=== PATIENT | female | born 1930 | race Caucasian/White ===

== ENCOUNTER 2017-12-03 02:36 | Emergency (ER) | payer MEDICARE ==
[2017-12-03] MEDS ORDERED: Pantoprazole IV* 40 MG IV ONE (03:05)
[2017-12-03] MEDS ORDERED: Al Hydrox/Mg Hydrox/Simet LIQ* 30 ML UDC PO ONE (03:05)
[2017-12-03] MEDS ORDERED: Lidocaine 2% VISCOUS* 15 ML UDC PO ONE (03:05)
[2017-12-03] MEDS ORDERED: Al Hydrox/Mg Hydrox/Simet LIQ* 30 ML UDC ONE (03:23)
[2017-12-03 03:32] LABS: ABS Basophils 0 10^3/ul (0-0.2); ABS Eosinophils 0.1 10^3/ul (0-0.6); ABS Monocytes 0.6 10^3/ul (0-0.8); ABS Nucleated RBC 0 10^3/ul; Eosinophil % 2.1 % (0-6); Hematocrit 35 % (35-47); Hemoglobin 11.3 g/dl (12.0-16.0); Lymphocyte % 26.3 % (25-47); Mean Corpuscular HGB Conc 33 g/dl (31-36); Mean Corpuscular Hemoglobin 26 pg (27-31); Mean Corpuscular Volume 79 fL (80-97); Nucleated Red Blood Cells % 0; Platelet Count 270 10^3/ul (150-450); Red Cell Distribution Width 17 % (10.5-15); White Blood Count 3.7 10^3/ul (3.5-10.8)
[2017-12-03 03:40] LABS: INR 0.97 (0.77-1.02)
[2017-12-03 03:47] LABS: EGFR Non-African American 92.6 (>60)
[2017-12-03 04:58] VITALS: BP 132/76
--- NOTE | 2017-12-03 05:07 | ED ---
June Hernandez Thomas, scribed for Kristin Schroeder MD on 12/03/17 at 0333 . Abdominal Pain/Female - HPI Summary HPI Summary: The patient is an 87 year old female complaining of epigastric abdominal pain and shortness of breath that woke her up from sleep a few hours ago. She reports similar prior episodes of abdominal pain. She complains of nausea. She denies any pleuritic pain or chest pain. Two weeks ago, the patient was admitted for two days for a similar pain. She was told that she was cleared from a cardiac standpoint. Past medical history includes hiatal hernia. Past surgical history includes cholecystectomy. - History of Current Complaint Chief Complaint: EDChestPainROMI Stated Complaint: DIFFICULTY BREATHING Time Seen by Provider: 12/03/17 02:52 Hx Obtained From: Patient Onset/Duration: Lasting Hours, Still Present Timing: Constant Severity Currently: Severe Pain Intensity: 8 Pain Scale Used: 0-10 Numeric Location: Epigastric Aggravating Factor(s): Nothing Alleviating Factor(s): Nothing Associated Signs and Symptoms: Positive: Nausea, Other: - SOB. Negative: Fever Allergies/Adverse Reactions: Allergies Allergy/AdvReac Type Severity Reaction Status Date / Time alprazolam Allergy Dizziness Verified 12/03/17 03:35 aspirin Allergy See Comment Verified 12/03/17 03:35 atorvastatin [From Lipitor] Allergy Nausea Verified 12/03/17 03:35 iodine Allergy Rash Verified 12/03/17 03:35 lidocaine Allergy Itching Verified 12/03/17 03:35 PMH/Surg Hx/FS Hx/Imm Hx Endocrine/Hematology History: Denies: Hx Diabetes Cardiovascular History: Reports: Hx Hypercholesterolemia, Hx Hypertension Denies: Hx Congestive Heart Failure GI History: Reports: Hx Hiatal Hernia, Other GI Disorders - Ulcerative Proctitis History: Reports: Other Problems/Disorders - urinary retention Denies: Hx Renal Disease Musculoskeletal History: Reports: Hx Back Problems - recent fall Sensory History: Reports: Hx Cataracts, Hx Contacts or Glasses Denies: Hx Hearing Problem Opthamlomology History: Reports: Hx Cataracts, Hx Contacts or Glasses Psychiatric History: Reports: Hx Anxiety, Hx Depression - Cancer History Cancer Type, Location and Year: unknown if breast cancer cells in lumpectomy Hx Chemotherapy: No Hx Radiation Therapy: Yes - Surgical History Surgery Procedure, Year, and Place: right breast lumpectomy ', hernia repair, blood clot removal from brain '96 Hx Anesthesia Reactions: No - Immunization History Date of Tetanus Vaccine: unknown Date of Influenza Vaccine: 2013 Infectious Disease History: No Infectious Disease History: Denies: Traveled Outside the [place] in Last 30 Days - Family History Known Family History: Negative: Seizure Disorder - Social History Alcohol Use: None Hx Substance Use: No Substance Use Type: Reports: None Hx Tobacco Use: No Smoking Status (MU): Never Smoked Tobacco Review of Systems Negative: Chest Pain Positive: Shortness Of Breath Positive: Abdominal Pain, Nausea All Other Systems Reviewed And Are Negative: Yes Physical Exam - Summary Physical Exam Summary: VITAL SIGNS: Reviewed. GENERAL: Patient is a well-developed and nourished female who is lying comfortable in the stretcher. Patient is not in any acute respiratory distress. HEAD AND FACE: No signs of trauma. No ecchymosis, hematomas or skull depressions. No sinus tenderness. EYES: PERRLA, EOMI x 2, No injected conjunctiva, no nystagmus. EARS: Hearing grossly intact. Ear canals and tympanic membranes are within normal limits. MOUTH: Oropharynx within normal limits. NECK: Supple, trachea is midline, no adenopathy, no JVD, no carotid bruit, no c- spine tenderness, neck with full ROM. CHEST: Symmetric, no tenderness at palpation LUNGS: Clear to auscultation bilaterally. No wheezing or crackles. CVS: Regular rate and rhythm, S1 and S2 present, no murmurs or gallops appreciated. ABDOMEN: Soft. Epigastric tenderness. No signs of distention. No rebound no guarding, and no masses palpated. Bowel sounds are normal. EXTREMITIES: FROM in all major joints, no edema, no cyanosis or clubbing. NEURO: Alert and oriented x 3. No acute neurological deficits. Speech is normal and follows commands. SKIN: Dry and warm Triage Information Reviewed: Yes Vital Signs On Initial Exam: Initial Vitals Resp 18 12/03/17 02:44 Vital Signs Reviewed: Yes Diagnostics - Vital Signs Vital Signs Temp Pulse Resp BP Pulse Ox 12/03/17 03:00 83 19 98 12/03/17 02:47 97.4 F 78 28 169/88 98 12/03/17 02:46 82 21 169/88 99 12/03/17 02:44 18 - Laboratory Result Diagrams: 12/03/17 03:24 05/04/18 03:24 Lab Statement: Any lab studies that have been ordered have been reviewed, and results considered in the medical decision making process. - Radiology CXR Xray Interpretation: No Acute Changes - No acute process Radiology Interpretation Completed By: ED Physician - EKG 02:49 Cardiac Rate: NL EKG Rhythm: Sinus Rhythm - at 79 BPM Re-Evaluation - Re-Evaluation First Eval Re-Evaluation Time: 04:25 Comment: She is feeling fine. Abdominal Pain Fem Course/Dx - Course Course Of Treatment: The patient is an 87 year old female complaining of epigastric abdominal pain and shortness of breath that woke her up from sleep a few hours ago. Two weeks ago, the patient was admitted for two days for a similar pain. She was told that she was cleared from a cardiac standpoint. Past medical history includes hiatal hernia. In the ED course, the patient was given Maalox, Xylocaine, and Protonix. Bloodwork, EKG, and CXR were obtained. At re- evaluation, the patient is feeling better. Her symptoms could be anxiety versus hiatus hernia. The patient is diagnosed with atypical chest pain. The patient will be discharged home to follow up with primary care. - Diagnoses Provider Diagnoses: Atypical chest pain Discharge - Sign-Out/Discharge Documenting (check all that apply): Discharge/Admit/Transfer - Discharge Plan Condition: Stable Disposition: HOME Patient Education Materials: Chest Pain (ED) Referrals: Sixto Benavides MD [Medical Doctor] - 3 Days Additional Instructions: Follow up with your primary care physician in three days. Return to the emergency department for any new or worsening symptoms. The documentation as recorded by the June russo Thomas accurately reflects the service I personally performed and the decisions made by , Kristin Schroeder MD.
--- NOTE | 2017-12-03 08:05 | RAD ---
Indication: Chest pain, shortness of breath, epigastric pain. History of hiatal hernia. Comparison: December 30, [address] Technique: Upright AP 0315 hours Report: Rightward rotation noted. Elevated lung volumes and mild prominence of the interstitial markings. No focal pulmonary lesion, compelling alveolar consolidation, pleural effusion, pneumothorax. Negative for cardiomegaly. Unremarkable central pulmonary vasculature. Moderately tortuous thoracic aorta. RIGHT axillary surgical clips. Advanced arthropathy of the shoulders. Chronic severe compression fracture at the approximate L2 level. IMPRESSION: Stigmata of obstructive lung disease. No acute pulmonary or cardiac process evident.
== END 2017-12-03 05:01 | disposition home or self-care (01) ==
LOC: ED 02:36
DX: R07.89 Other chest pain (principal); R10.13 Epigastric pain; R11.0 Nausea; R06.02 Shortness of breath; Z86.79 Personal history of other diseases of the circulatory system
CPT/HCPCS: 36415; 71045; 80053; 82150; 83690; 83735; 83880; 84484; 85025; 85610; 85730; 93005; 96374; 99284; A9270-GY

== ENCOUNTER 2018-07-03 00:40 | Emergency (ER) | payer MEDICARE ==
[2018-07-03] MEDS ORDERED: NS 0.9% 1000 ML* 1,000 ML IV ONE (01:14)
[2018-07-03] MEDS ORDERED: Ondansetron INJ* 2 MG/ML VIAL IV ONE (01:16)
[2018-07-03] MEDS ORDERED: Pantoprazole IV* 40 MG IV ONE (01:16)
[2018-07-03] MEDS ORDERED: fentaNYL* 50 MCG/ML 2 ML VIAL (100 MCG VIAL) IV SLOW PU ONE (01:17)
[2018-07-03 01:52] LABS: ABS Basophils 0 10^3/ul (0-0.2); ABS Eosinophils 0.1 10^3/ul (0-0.6); ABS Lymphocytes 0.7 10^3/ul (1.0-4.8); ABS Monocytes 0.3 10^3/ul (0-0.8); ABS Neutrophils 2.2 10^3/ul (1.5-7.7); ABS Nucleated RBC 0 10^3/ul; Eosinophil % 1.6 %; Hematocrit 34 % (35-47); Hemoglobin 11.4 g/dl (12.0-16.0); Mean Corpuscular HGB Conc 34 g/dl (31-36); Mean Corpuscular Hemoglobin 26 pg (27-31); Mean Corpuscular Volume 78 fL (80-97); Mean Platelet Volume 7.2 fL (7.4-10.4); Nucleated Red Blood Cells % 0; Platelet Count 292 10^3/ul (150-450); Red Blood Count 4.36 10^6/ul (4.00-5.40); Red Cell Distribution Width 18 % (10.5-15); White Blood Count 3.3 10^3/ul (3.5-10.8)
[2018-07-03 02:09] LABS: EGFR Non-African American 94.1 (>60)
--- NOTE | 2018-07-03 03:45 | ED ---
Abdominal Pain/Female - HPI Summary HPI Summary: The pt is a 88 y.o female presenting to the [facility] with a chief complaint of abd pain. She states that she was previously dx with gastritis. She visited [facility] 2 days ago, however no CT scan was taken. Pt denies PMHx of aneurysm. The location of the pain is reported to be at the upper abd region. She has not eaten in 3 days due to symptoms becoming aggravated with food ingestion. PSHx of Cholecystectomy. No hx of heart disease, Hypercholesteremia and DM noted. Hx of HTN noted. Pt is also currently nauseous. The pain is rated to be a 6/10 in severity. She states the pain was much worse previously. No hx of obstruction noted. No endoscopy has been done on the patient prior to [facility] arrival. Kidneys are reportedly normal. - History of Current Complaint Chief Complaint: EDAbdPain Stated Complaint: ABD PAIN Time Seen by Provider: 07/03/18 00:58 Hx Obtained From: Patient Onset/Duration: Gradual Onset Timing: Constant Severity Initially: Moderate Severity Currently: Mild Pain Intensity: 6 Pain Scale Used: 0-10 Numeric Location: Epigastric Aggravating Factor(s): Food Alleviating Factor(s): Nothing Associated Signs and Symptoms: Positive: Nausea Allergies/Adverse Reactions: Allergies Allergy/AdvReac Type Severity Reaction Status Date / Time alprazolam Allergy Dizziness Verified 07/03/18 00:58 aspirin Allergy See Comment Verified 07/03/18 00:58 atorvastatin [From Lipitor] Allergy Nausea Verified 07/03/18 00:58 iodine Allergy Rash Verified 07/03/18 00:58 lidocaine Allergy Itching Verified 07/03/18 00:58 PMH/Surg Hx/FS Hx/Imm Hx Endocrine/Hematology History: Denies: Hx Diabetes Cardiovascular History: Reports: Hx Hypercholesterolemia, Hx Hypertension Denies: Hx Congestive Heart Failure GI History: Reports: Hx Hiatal Hernia, Other GI Disorders - Ulcerative Proctitis History: Reports: Other Problems/Disorders - urinary retention Denies: Hx Renal Disease Musculoskeletal History: Reports: Hx Back Problems - recent fall Sensory History: Reports: Hx Cataracts, Hx Contacts or Glasses Denies: Hx Hearing Problem Opthamlomology History: Reports: Hx Cataracts, Hx Contacts or Glasses Psychiatric History: Reports: Hx Anxiety, Hx Depression - Cancer History Cancer Type, Location and Year: unknown if breast cancer cells in lumpectomy Hx Chemotherapy: No Hx Radiation Therapy: Yes - Surgical History Surgery Procedure, Year, and Place: right breast lumpectomy ', hernia repair, blood clot removal from brain ' Hx Anesthesia Reactions: No - Immunization History Date of Tetanus Vaccine: unknown Date of Influenza Vaccine: 2013 Infectious Disease History: No Infectious Disease History: Denies: Traveled Outside the [place] in Last 30 Days - Family History Known Family History: Negative: Seizure Disorder Family History: FHx reviewed and noncontributory. - Social History Alcohol Use: None Hx Substance Use: No Substance Use Type: Reports: None Hx Tobacco Use: No Smoking Status (MU): Never Smoked Tobacco Review of Systems Constitutional: Negative Eyes: Negative ENT: Negative Cardiovascular: Negative Respiratory: Negative Positive: Abdominal Pain - epigastric, Nausea Genitourinary: Negative Musculoskeletal: Negative Skin: Negative Neurological: Negative Psychological: Normal All Other Systems Reviewed And Are Negative: Yes Physical Exam - Summary Physical Exam Summary: GENERAL: Patient is a well-developed and nourished Female who is lying comfortable in the stretcher. Patient is not in any acute respiratory distress. HEAD AND FACE: Normocephalic EYES: PERRLA, EOMI x 2. EARS: Hearing grossly intact. MOUTH: Oropharynx within normal limits. NECK: Supple, trachea is midline, no adenopathy, no JVD, no carotid bruit. CHEST: Symmetric, no tenderness at palpation LUNGS: Clear to auscultation bilaterally. No wheezing or crackles. CVS: Regular rate and rhythm, S1 and S2 present, no murmurs or gallops appreciated. ABDOMEN: tender to epigastric area; No rebound or guarding distension in the abd EXTREMITIES: Full ROM in all major joints, no edema, no cyanosis or clubbing. NEURO: Alert and oriented x 3. No acute neurological deficits. Speech is normal and follows commands. SKIN: Dry and warm Triage Information Reviewed: Yes Vital Signs On Initial Exam: Initial Vitals Temp Pulse Resp BP Pulse Ox 97.9 F 75 14 142/76 97 07/03/18 00:43 07/03/18 00:43 07/03/18 00:43 07/03/18 00:43 07/03/18 00:43 Vital Signs Reviewed: Yes Diagnostics - Vital Signs Vital Signs Temp Pulse Resp BP Pulse Ox 07/03/18 01:59 14 07/03/18 00:43 97.9 F 75 14 142/76 97 - Laboratory Lab Results: Lab Results 07/03/18 07/03/18 07/03/18 Range/Units 01:25 01:25 01:25 WBC 3.3 L (3.5-10.8) 10^3/ul RBC 4.36 (4.00-5.40) 10^6/ul Hgb 11.4 L (12.0-16.0) g/dl Hct 34 L (35-47) % MCV 78 L (80-97) fL MCH 26 L (27-31) pg MCHC 34 (31-36) g/dl RDW 18 H (10.5-15) % Plt Count 292 (150-450) 10^3/ul MPV 7.2 L (7.4-10.4) fL Neut % (Auto) 65.5 % Lymph % (Auto) 22.0 % Lanier % (Auto) 10.0 % Eos % (Auto) 1.6 % Baso % (Auto) 0.9 % Absolute Neuts (auto) 2.2 (1.5-7.7) 10^3/ul Absolute Lymphs (auto) 0.7 L (1.0-4.8) 10^3/ul Absolute Monos (auto) 0.3 (0-0.8) 10^3/ul Absolute Eos (auto) 0.1 (0-0.6) 10^3/ul Absolute Basos (auto) 0 (0-0.2) 10^3/ul Absolute Nucleated RBC 0 10^3/ul Nucleated RBC % 0 APTT 16.6 L (26.0-36.3) seconds Sodium 129 L (135-145) mmol/L Potassium TNP Chloride 98 L (101-111) mmol/L Carbon Dioxide 25 (22-32) mmol/L Anion Gap 6 (2-11) mmol/L BUN 6 (6-24) mg/dL Creatinine 0.60 (0.51-0.95) mg/dL Est GFR ( Amer) 113.9 (>60) Est GFR (Non-Af Amer) 94.1 (>60) BUN/Creatinine Ratio 10.0 (8-20) Glucose 107 H (70-100) mg/dL Lactic Acid (0.5-2.0) mmol/L Calcium 8.9 (8.6-10.3) mg/dL Magnesium TNP Total Bilirubin 0.40 (0.2-1.0) mg/dL AST TNP ALT 8 (7-52) U/L Alkaline Phosphatase 77 (34-104) U/L Troponin I 0.00 (<0.04) ng/mL Total Protein 5.9 L (6.4-8.9) g/dL Albumin 3.5 (3.2-5.2) g/dL Globulin 2.4 (2-4) g/dL Albumin/Globulin Ratio 1.5 (1-3) Lipase 17 (11.0-82.0) U/L 07/03/18 07/03/18 Range/Units 01:25 02:17 WBC (3.5-10.8) 10^3/ul RBC (4.00-5.40) 10^6/ul Hgb (12.0-16.0) g/dl Hct (35-47) % MCV (80-97) fL MCH (27-31) pg MCHC (31-36) g/dl RDW (10.5-15) % Plt Count (150-450) 10^3/ul MPV (7.4-10.4) fL Neut % (Auto) % Lymph % (Auto) % Lanier % (Auto) % Eos % (Auto) % Baso % (Auto) % Absolute Neuts (auto) (1.5-7.7) 10^3/ul Absolute Lymphs (auto) (1.0-4.8) 10^3/ul Absolute Monos (auto) (0-0.8) 10^3/ul Absolute Eos (auto) (0-0.6) 10^3/ul Absolute Basos (auto) (0-0.2) 10^3/ul Absolute Nucleated RBC 10^3/ul Nucleated RBC % APTT (26.0-36.3) seconds Sodium (135-145) mmol/L Potassium 3.6 Chloride (101-111) mmol/L Carbon Dioxide (22-32) mmol/L Anion Gap (2-11) mmol/L BUN (6-24) mg/dL Creatinine (0.51-0.95) mg/dL Est GFR ( Amer) (>60) Est GFR (Non-Af Amer) (>60) BUN/Creatinine Ratio (8-20) Glucose (70-100) mg/dL Lactic Acid 0.5 (0.5-2.0) mmol/L Calcium (8.6-10.3) mg/dL Magnesium 2.1 Total Bilirubin (0.2-1.0) mg/dL AST 11 L ALT (7-52) U/L Alkaline Phosphatase (34-104) U/L Troponin I (<0.04) ng/mL Total Protein (6.4-8.9) g/dL Albumin (3.2-5.2) g/dL Globulin (2-4) g/dL Albumin/Globulin Ratio (1-3) Lipase (11.0-82.0) U/L Result Diagrams: 07/03/18 01:25 18 02:17 Lab Statement: Any lab studies that have been ordered have been reviewed, and results considered in the medical decision making process. - CT CT A/P CT Interpretation Completed By: Radiologist Summary of CT Findings: CT A/P reveals as per radiologist, 1. Cholecystectomy. 2. Colonic diverticulosis. 3. Status post ventral hernia repair surgery. 4. Changes involving the spine, as described above. The ED Physician has reviewed this radiology report. - EKG 0221 Summary of EKG Findings: An EKG reveals no ischemic changes, sinus bradycardia at 55 bpm. Time stamp at 0221. Abdominal Pain Fem Course/Dx - Course Course Of Treatment: The pt is an 88 y.o female who is presenting to the [facility] with a chief complaint of abd pain. The pt has previously been diagnosed with gastritis. CT scan of the abdomen shows no acute etiology. Patient given a liter of IV fluids, Protonix and Reglan and reports feeling a lot better. Results discussed the patient. Patient instructed to follow-up with her doctor. Patient is hemodynamically stable and safe for discharge and with strict return precautions and will otherwise follow-up as discussed. - Diagnoses Provider Diagnoses: Gastritis, Abdominal pain Discharge - Sign-Out/Discharge Documenting (check all that apply): Patient Departure - Departure Home - Discharge Plan Condition: Stable Disposition: HOME Prescriptions: Pantoprazole TAB (NF) [Protonix TAB (NF)] 20 mg PO DAILY #30 tab Patient Education Materials: Gastritis (ED), Abdominal Pain (ED) Referrals: Deandre Van MD [Medical Doctor] - Bolivar Niño MD [Primary Care Provider] - Additional Instructions: Follow up with GI Physician in 1-3 days. RETURN TO THE EMERGENCY DEPARTMENT FOR CHANGING OR WORSENING SYMPTOMS. - Billing Disposition and Condition Condition: STABLE Disposition: Home - Attestation Statements Document Initiated by Scribe: Yes Documenting Scribe: Mario Mcpherson Provider For Whom Scribe is Documenting (Include Credential): Dr. Filiberto Sainz Scribe Attestation: Mario Hernandez, scribed for Dr. Filiberto Sainz on 07/03/18 at 0551. Scribe Documentation Reviewed: Yes Provider Attestation: The documentation as recorded by the Mario russo accurately reflects the service I personally performed and the decisions made by , Dr. Filiberto Sainz Status of Scribe Document: Viewed
[2018-07-03 03:51] LABS: Urine Appearance Clear; Urine Blood Negative (Negative); Urine Color Straw; Urine Ketones Negative (Negative); Urine Protein Negative (Negative); Urine Specific Gravity 1.002 (1.010-1.030); Urine Urobilinogen Negative (Negative)
[2018-07-03 05:02] VITALS: BP 132/75
== END 2018-07-03 05:01 | disposition home or self-care (01) ==
LOC: ED 00:40
DX: K29.70 Gastritis, unspecified, without bleeding (principal); R10.13 Epigastric pain; K57.30 Diverticulosis of large intestine without perforation or abscess without bleeding; R00.1 Bradycardia, unspecified; Z90.49 Acquired absence of other specified parts of digestive tract; Z88.6 Allergy status to analgesic agent; Z88.4 Allergy status to anesthetic agent; Z88.8 Allergy status to other drugs, medicaments and biological substances
CPT/HCPCS: 36415; 74176; 80053; 81003; 83605; 83690; 83735; 84484; 85025; 85730; 93005; 96374; 96375; 99283; J2405; J3010

== ENCOUNTER 2018-11-27 22:21 | Emergency (ER) | payer MEDICARE ==
--- NOTE | 2018-11-28 01:32 | ED ---
Upper Extremity Pain - HPI Summary HPI Summary: This patient is an 88 year old F presenting to [facility] accompanied by daughter with a chief complaint of L shoulder pain that began yesterday afternoon. The patient rates the pain 6/10 in severity. Symptoms aggravated by movement. Symptoms alleviated by nothing. Patient denies wrist and hand pain. - History of Current Complaint Chief Complaint: EDShoulderClavicJadielnj Stated Complaint: SHOULDER INJURY PER PT Time Seen by Provider: 11/28/18 01:26 Hx Obtained From: Patient Onset/Duration: Started Hours Ago, Atraumatic, Still Present Timing: Constant Severity Initially: Moderate Severity Currently: Moderate Pain Location: Shoulder Aggravating Factor(s): Movement Alleviating Factor(s): Nothing Associated Signs & Symptoms: Positive: Other - Negative wrist and hand pain - Allergies/Home Medications Allergies/Adverse Reactions: Allergies Allergy/AdvReac Type Severity Reaction Status Date / Time alprazolam Allergy Dizziness Verified 07/03/18 00:58 aspirin Allergy See Comment Verified 07/03/18 00:58 atorvastatin [From Lipitor] Allergy Nausea Verified 07/03/18 00:58 ciprofloxacin Allergy Unknown Verified 09/13/18 09:11 Reaction Details iodine Allergy Rash Verified 07/03/18 00:58 lidocaine Allergy Itching Verified 07/03/18 00:58 PMH/Surg Hx/FS Hx/Imm Hx Previously Healthy: No Endocrine/Hematology History: Denies: Hx Diabetes Cardiovascular History: Reports: Hx Hypercholesterolemia, Hx Hypertension Denies: Hx Congestive Heart Failure GI History: Reports: Hx Hiatal Hernia, Other GI Disorders - Ulcerative Proctitis History: Reports: Other Problems/Disorders - urinary retention Denies: Hx Renal Disease Musculoskeletal History: Reports: Hx Back Problems - recent fall Sensory History: Reports: Hx Cataracts, Hx Contacts or Glasses Denies: Hx Hearing Problem Opthamlomology History: Reports: Hx Cataracts, Hx Contacts or Glasses Psychiatric History: Reports: Hx Anxiety, Hx Depression - Cancer History Cancer Type, Location and Year: unknown if breast cancer cells in lumpectomy Hx Chemotherapy: No Hx Radiation Therapy: Yes - Surgical History Surgery Procedure, Year, and Place: right breast lumpectomy ', hernia repair, blood clot removal from brain ' Hx Anesthesia Reactions: No - Immunization History Date of Tetanus Vaccine: unknown Date of Influenza Vaccine: 2013 Infectious Disease History: No Infectious Disease History: Denies: Traveled Outside the [place] in Last 30 Days - Family History Known Family History: Negative: Seizure Disorder - Social History Occupation: Employed Part-time Lives: Alone Alcohol Use: None Hx Substance Use: No Substance Use Type: Reports: None Hx Tobacco Use: No Smoking Status (MU): Never Smoked Tobacco Review of Systems Negative: Fever Positive: Other - Positive L shoulder pain. Negative hand and wrist pain All Other Systems Reviewed And Are Negative: Yes Physical Exam - Summary Physical Exam Summary: Appearance: Well-appearing, Well-nourished, lying in bed comfortable Skin: Warm, dry, no obvious rash Eyes: sclera anicteric, no conjunctival pallor ENT: mucous membranes moist Neck: deferred Respiratory: No signs of respiratory distress Cardiovascular: Appears well perfused, pulses are nml Abdomen: deferred Musculoskeletal: Left shoulder has a large effusion with pain upon ROM, the remainder of the extremity appears normal Neurological: Awake and alert, mentation is normal, speech is fluent and appropriate Psychiatric: affect is normal, does not appear anxious or depressed Triage Information Reviewed: Yes Vital Signs On Initial Exam: Initial Vitals Temp Pulse Resp BP Pulse Ox 98.2 F 80 20 154/90 96 11/27/18 22:25 11/27/18 22:25 11/27/18 22:25 11/27/18 22:25 11/27/18 22:25 Vital Signs Reviewed: Yes Diagnostics - Vital Signs Vital Signs Temp Pulse Resp BP Pulse Ox 11/27/18 22:25 98.2 F 80 20 154/90 96 - Laboratory Lab Statement: Any lab studies that have been ordered have been reviewed, and results considered in the medical decision making process. - Radiology Shoulder XR Radiology Interpretation Completed By: ED Physician Summary of Radiographic Findings: Shoulder XR reveals, per ED physician, degenerative changes in the shoulder but no acute fracture. - CT Upper Extremity CT CT Interpretation Completed By: Radiologist Summary of CT Findings: Upper extremity CT reveals, per radiologist, large bursitis. ED physician has reviewed this radiology report. Course/Dx - Course Course Of Treatment: This patient is an 88 year old F presenting to [facility] accompanied by daughter with a chief complaint of L shoulder pain that began yesterday afternoon. Physical Exam Findings: Left shoulder has a large effusion with pain upon ROM, the remainder of the extremity appears normal. Shoulder XR reveals, per ED physician, degenerative changes in the shoulder but no acute fracture. Upper extremity CT reveals, per radiologist, large bursitis. Patient will be discharged with follow up from PCP. The patient is agreeable with this plan. - Diagnoses Provider Diagnoses: Bursitis of left shoulder Discharge - Sign-Out/Discharge Documenting (check all that apply): Patient Departure - Discharge home Patient Received Moderate/Deep Sedation with Procedure: No - Discharge Plan Condition: Good Disposition: HOME Patient Education Materials: Shoulder Bursitis (ED), Osteoarthritis (ED), Swollen Shoulder Joint (ED) Referrals: Fabien Lamas MD [Medical Doctor] - Additional Instructions: Contact the Dr. Barnes's office, they may be able to help you with a bursal aspiration and injection. In the meantime, ice and rest along with tylenol will help with the symptoms. - Billing Disposition and Condition Condition: GOOD Disposition: Home - Attestation Statements Document Initiated by Polo: Yes Documenting Scribe: Sahara Linda Provider For Whom Polo is Documenting (Include Credential): Dr. Eric Mckay MD Scribe Attestation: I, Sahara Linda, scribed for Dr. Eric Mckay MD on 11/28/18 at 0356. Scribe Documentation Reviewed: Yes Provider Attestation: The documentation as recorded by the Sahara russo accurately reflects the service I personally performed and the decisions made by me, Dr. Eric Mckay MD Status of Scribe Document: Viewed
[2018-11-28 03:38] VITALS: BP 134/74
== END 2018-11-28 03:30 | disposition home or self-care (01) ==
LOC: ED 22:21
DX: M75.52 Bursitis of left shoulder (principal); M25.512 Pain in left shoulder; I10 Essential (primary) hypertension; Z90.11 Acquired absence of right breast and nipple; M85.80 Other specified disorders of bone density and structure, unspecified site
CPT/HCPCS: 93005; 99282

== ENCOUNTER → 2018-12-09 18:57 | Emergency (ER) | payer MEDICARE ==
[2018-12-09 19:44] VITALS: BP 131/81
== END | disposition home or self-care (01) ==
LOC: ED 18:57
DX: K59.00 Constipation, unspecified (principal); Z53.21 Procedure and treatment not carried out due to patient leaving prior to being seen by health care provider
CPT/HCPCS: 99281